=== PATIENT | female | born 1985 | race Caucasian/White ===

== ENCOUNTER → 2018-07-02 | Outpatient (CLI) | payer BC | LOC: M.RAD 08:41 | DX: N63.10 Unspecified lump in the right breast, unspecified quadrant (principal); R92.2 Inconclusive mammogram ==

== ENCOUNTER → 2018-08-10 | Outpatient (CLI) | payer BC ==
--- NOTE | 2018-08-14 08:11 | PATH ---
[address] [address] PATHOLOGY RPT PROCEDURE Name: MALKA PEREZ Room: [facility] Joanna#: [id number] Admission: 08/10/18 Date of : 85 Discharge: Report #: [id number] Path Case #: [id number] [facility] Accession Number: [id number] . 01 Material submitted: . RIGHT AXILLA MASS . 01 Clinical history: . Right axilla mass, subcutaneous, 1.1 x .67 x .65 cm . 02 Diagnosis: Right axilla mass: - Fragments of benign fat consistent with lipoma and benign apocrine sweat glandular tissue. (ANIRUDH:pit 08/12/2018) QTP/08/12/2018 . 02 Electronically signed: . Sammy Levy MD, Pathologist NPI- [id number] . 01 Gross description: . Received in formalin labeled "Malka Perez, right axilla mass," are multiple needle cores of yellow-vick fibrofatty tissue measuring 1.3 x 0.4 x 0.1 cm in aggregate dimensions. The specimen is submitted entirely in cassettes A1 through A3. The specimen is collected at 10:01 AM on 08/10/2018; the time in formalin is not provided. The time out of formalin is at 6:50 PM on 08/11/2018. (DAC; 08/11/2018) XDC/XDC . 02 Pathologist provided ICD-10: D17.79 . 02 CPT . [id number] Specimen Comment: A courtesy copy of this report has been sent to Specimen Comment: [phone], , . Specimen Comment: Report sent to ,DR CASE / DR BRYANT Specimen Comment: A duplicate report has been generated due to demographic updates. Performed at: 01 [facility] [address] [id number] MD Broderick Stock MD Phone: [phone] Performed at: [address] [facility] [address] [id number] [place] [address] PATHOLOGY RPT PROCEDURE Name: MALKA PEREZ Room: [facility]#: [id number] Admission: 08/10/18 Date of : 85 Discharge: Report #: [id number] Path Case #: [id number] MD Sammy Levy MD Phone: [phone]
== END | disposition home or self-care (01) ==
LOC: M.ULTRA 08:09
DX: N63.31 Unspecified lump in axillary tail of the right breast (principal); D17.79 Benign lipomatous neoplasm of other sites; R92.1 Mammographic calcification found on diagnostic imaging of breast